=== PATIENT | male | born 1970 | race Caucasian/White ===

== ENCOUNTER 2020-05-29 09:56 | Observation (INO) | payer OTHER ==
[~2020-05-29] VITALS: Ht 154.9 cm; Wt 103.9 kg
[2020-05-29 10:07] VITALS: BP 143/71
[2020-05-29 10:27] LABS: BASO % 0.4 % (0.0-1.0); EOS # 0.1 10*3/uL (0.0-0.4); EOS % 2.1 % (1.0-4.0); HEMATOCRIT 45.2 % (42.0-52.0); LYMPH # 2.1 10*3/uL (1.3-4.4); LYMPH % 30.3 % (27.0-41.0); MEAN CORPUSCULAR HGB 32.4 pg (27.0-31.0); MEAN CORPUSCULAR HGB CONC 34.1 g/dl (33.0-37.0); MEAN PLATELET VOLUME 12.2 fl (9.6-12.3); MONO # 0.5 10*3/uL (0.1-1.0); MONO % 7.1 % (3.0-9.0); NEUT # 4.1 10*3/uL (2.3-7.9); PLATELET COUNT AUTOMATED 174 10*3/uL (130-400); RED BLOOD COUNT 4.76 10*6/uL (4.50-5.90); RED CELL DISTRI WIDTH 11.8 % (0-14.5); WHITE BLOOD COUNT 6.8 10*3/uL (4.8-10.8)
[2020-05-29 10:37] LABS: ACT PARTIAL THROMBO TIME 26.5 SECONDS (20.0-32.1)
[2020-05-29 10:43] LABS: ALBUMIN 3.5 gm/dl (3.1-4.5); ALKALINE PHOSPHATASE 56 U/L (45-117); BUN 18 mg/dl (7-24); CHLORIDE 106 mmol/L (98-107); LIPASE 332 U/L (73-393); POTASSIUM 3.9 mmol/L (3.5-5.1); SGOT/AST 17 IU/L (3-35); SGPT/ALT 29 U/L (12-78); SODIUM 138 mmol/L (136-145); TOTAL PROTEIN 7.1 gm/dL (6.4-8.2)
[2020-05-29 10:47] LABS: TROPONIN I < 0.015 ng/ml (<0.045)
[2020-05-29 11:00] VITALS: BP 129/84
[2020-05-29 12:00] VITALS: BP 129/82
--- NOTE | 2020-05-29 12:33 | NUR ---
PATIENT DENIES WOUNDS A&OX4.
--- NOTE | 2020-05-29 13:03 | NUR ---
A 50, admitted to , under the services of MONIKA Mathew DO with a diagnosis of CHEST PAIN R/O MA. Chief complaint is CHEST PAIN. Patient arrived via bed from ER. Monitor applied. Initial assessment completed. Vital signs taken and recorded. MONIKA MATHEW DO notified of admission to the unit. Orders received. See assessment for past medical history, medications and allergies. Patient and/or family oriented to unit. [facility] visitation policy reviewed. Clothing/patient valuable form completed. RONALD MITCHELL
--- NOTE | 2020-05-29 13:04 | NUR ---
Received call from Larisa at the [facility] requesting clinical be faxed to case management specialist Kimberli at the [facility], . Kimberli's phone number [phone] x [phone]. She will be the ongoing case management specialist. Faxed available clinical.
--- NOTE | 2020-05-29 13:07 | NUR ---
PATIENT TAKEN TO 4TH FLOOR BY THIS NURSE. BEDSIDE REPORT GIVEN TO RONALD RANDLE. NO CHANGE IN PATIENT STATUS.
[2020-05-29 14:00] VITALS: BP 122/97
[2020-05-29 16:06] VITALS: BP 122/74
--- NOTE | 2020-05-29 19:59 | NUR ---
24 HR chart check completed.
[2020-05-29 20:00] VITALS: BP 131/79
--- NOTE | 2020-05-29 21:00 | NUR ---
TALKING ON PHONE. NO DISTRESS NOTED. RESPIRATIONS EASY. VSS. CALL LIGHT WITHIN REACH
--- NOTE | 2020-05-29 22:00 | NUR ---
RESTING IN BED WITH NO ACUTE DISTRESS NOTED. RESPIRATIONS EASY. LUNGS DIMINISHED, CLEAR. PULSE OX 95% RA. CALL LIGHT WITHIN REACH. NO VOICED COMPLAINTS
[2020-05-30] VITALS: BP 127/78
--- NOTE | 2020-05-30 | NUR ---
SLEEPING. NO DISTRESS NOTED. RESPIRATIONS EASY. VSS. CALL LIGHT WITHIN REACH
--- NOTE | 2020-05-30 06:00 | NUR ---
SLEPT THROUGHOUT NIGHT WITH NO DISTRESS NOTED. RESPIRATIONS EASY. CALL LIGHT WITHIN REACH. NO VOICED COMPLAINTS THIS SHIFT
[2020-05-30 06:45] LABS: BASO % 0.4 % (0.0-1.0); EOS # 0.2 10*3/uL (0.0-0.4); EOS % 2.3 % (1.0-4.0); HEMATOCRIT 47.1 % (42.0-52.0); LYMPH # 2.5 10*3/uL (1.3-4.4); LYMPH % 31.6 % (27.0-41.0); MEAN CORPUSCULAR HGB 32.1 pg (27.0-31.0); MEAN CORPUSCULAR HGB CONC 33.8 g/dl (33.0-37.0); MEAN PLATELET VOLUME 11.8 fl (9.6-12.3); MONO # 0.7 10*3/uL (0.1-1.0); MONO % 8.6 % (3.0-9.0); NEUT # 4.4 10*3/uL (2.3-7.9); NEUT % 56.7 % (47.0-73.0); PLATELET COUNT AUTOMATED 179 10*3/uL (130-400); RED BLOOD COUNT 4.96 10*6/uL (4.50-5.90); RED CELL DISTRI WIDTH 11.8 % (0-14.5); WHITE BLOOD COUNT 7.8 10*3/uL (4.8-10.8)
[2020-05-30 07:07] LABS: ALBUMIN 3.5 gm/dl (3.1-4.5); ALKALINE PHOSPHATASE 55 U/L (45-117); BUN 17 mg/dl (7-24); CHLORIDE 107 mmol/L (98-107); CHOLESTEROL 183 mg/dL (<200); HDL CHOLESTEROL 20 mg/dl (40-60); LDL CHOLESTEROL 114 mg/dL (9-159); SGOT/AST 18 IU/L (3-35); SGPT/ALT 31 U/L (12-78); SODIUM 139 mmol/L (136-145); TOTAL PROTEIN 7.1 gm/dL (6.4-8.2); TRIGLYCERIDES 247 mg/dl (<150); VLDL CHOLESTEROL 49 mg/dL (6-40)
[2020-05-30 08:00] VITALS: BP 122/74
--- NOTE | 2020-05-30 08:30 | NUR ---
Marketing Production Specialist in to talk to patient. Patient states lives at home alone with his family checking in on him. There are 5 steps in the home. Physician: Gayathri Lisa at the [facility]: [place] or [facility] Home health services: none Patient's level of ADLs: INDEPENDENT Patient has working utilities: yes DME: none Follow-up physician's appointment after d/c: will be made by the hospitalist nurse director upon discharge Does patient want to access PORTAL?: no Discharge plan discussed with patient. He lives at home alone with his family checking in on him. He states he is independent in his ADLs and ambulation. Discussed home health care services and he declines. CM will continue to follow for any discharge planning needs. When medically stable he will be discharged to home. He states he drove himself here and plans to drive himself home. HEBER QUINTEROS
[2020-05-30] MEDS ORDERED: PANTOPRAZOLE SO40 MG PO (09:40)
--- NOTE | 2020-05-30 11:59 | NUR ---
ECHO COMPLETE. PT DISCHARGED HOME AT THIS TIME. [facility] REMOVED. PT REQUESTS TO AMBULATE OFF THE FLOOR.
--- NOTE | 2020-05-30 13:06 | NUR ---
Faxed discharge instructions and summary to [facility]li at the [facility]
== END 2020-05-30 11:59 | disposition home or self-care (01) ==
LOC: ED 09:56 → EDHOLD 11:41 → 4E 11:41
PROVIDERS: Emergency Medicine; Student in an Organized Health Care Education/Training Program; ADMIT Internal Medicine; ATTEND Internal Medicine
DX: R07.89 Other chest pain (principal); D75.89 Other specified diseases of blood and blood-forming organs; R73.9 Hyperglycemia, unspecified; E66.01 Morbid (severe) obesity due to excess calories